=== PATIENT | male | born 1965 | race Caucasian/White ===

== ENCOUNTER → 2023-07-23 | Emergency (ER) | payer OTHER ==
[~2023-07-23] MED LIST: AZITHROMYCIN 500 MG INJ IVPB ONE; CEFTRIAXONE 1000 MG/VIAL ONE; KETOROLAC 30 MG/ML INJ ONE; NA CHLORIDE 0.9% 0 ML ONE; NA CHLORIDE 0.9% 1,000 ML ONE; ONDANSETRON 4 MG/2 ML VIAL ONE; PROMETHAZINE 25 MG TABLET ONE
[2023-07-23 06:24] LABS: SARS-CoV-2 Antigen Rapid Res Negative (Negative)
[2023-07-23 06:40] LABS: Absolute Lymphocytes (CBC) 0.5 K/uL (0.7-4.9); Hematocrit 38.8 % (39.6-49.0); Lymphocytes % 3.7 % (15.3-44.8); MCV 87.7 fL (80-100); MPV 9.7 fL (7.6-11.3); Platelets 164 thou/uL (152-406); RBC Red Blood Cell Count 4.42 M/uL (4.33-5.43)
[2023-07-23 06:50] LABS: Albumin 3.3 g/dL (3.4-5.0); Bilirubin Total 0.5 mg/dL (0.2-1.0); Potassium 3.4 mEq/L (3.5-5.1)
--- NOTE | 2023-07-23 08:19 | RAD REPORT ---
EXAM DESCRIPTION: CT - Chest Abdomen Pelvis W Cont - 07/23/2023 7:50 am CLINICAL HISTORY: sepsis COMPARISON: No comparisons TECHNIQUE: Thin axial CT images of the chest, abdomen, and pelvis, performed following intravenous a dministration of 100mL Isovue-300. Multiplanar reformats were generated and reviewed. All CT scans are performed using dose optimization technique as appropriate and may include automated exposure control or mA/KV adjustment according to patient size. FINDINGS: The lungs are clear apart from mild bibasilar platelike atelectatic changes.No pleural or pericardial effusion.No intrathoracic adenopathy. The liver, spleen, pancreas, adrenal glands and kidneys are within normal limits. No bowel obstruction, free air, free fluid or abscess. Normal appendix. No pathologic lymphadenopath y in the abdomen or pelvis. Mild prostatomegaly. No worrisome osseous finding. IMPRESSION: No acute process in the chest, abdomen, and pelvis. . Mild prostatomegaly.
--- NOTE | 2023-07-23 08:41 | ER ---
Nurse's Notes [facility] Name: Alex Jon Age: 57 yrs Sex: Male : 1965 Arrival Date: 07/23/2023 Time: 04:59 Bed 12 Private MD: Diagnosis: Viral syndrome Presentation: 07/23 05:00 Chief complaint: EMS states: 57 YO male complaining of flu like symptoms, weakness and vc1 shortness of breath. Vitals are stable. We gave 1 gram of tylenol for a temperature of 100.8. 05:00 Coronavirus screen: Vaccine status: Patient reports receiving the 2nd dose of the covid vc1 vaccine. Client denies travel out of the [place] in the last 14 days. chills, fatigue, fever, headache, shaking with chills, shortness of breath, Client presents with at least one sign or symptom that may indicate coronavirus-19. Ebola Screen: Patient negative for fever greater than or equal to 101.5 degrees Fahrenheit, and additional compatible Ebola Virus Disease symptoms Patient denies exposure to infectious person. Patient denies travel to an Ebola-affected area in the 21 days before illness onset. No symptoms or risks identified at this time. Initial Sepsis Screen: Does the patient meet any 2 criteria? No. Patient's initial sepsis screen is negative. Does the patient have a suspected source of infection? No. Patient's initial sepsis screen is negative. Risk Assessment: Do you want to hurt yourself or someone else? Patient reports no desire to harm self or others. Onset of symptoms was July 22, 2023 at 15:00. 05:00 Method Of Arrival: EMS: [facility] vc1 05:00 Acuity: IVORY 4 vc1 Triage Assessment: 06:21 General: Appears in no apparent distress. uncomfortable, Behavior is calm, cooperative, vc1 appropriate for age. General: Reports chills for fever for feeling ill for fatigue for 12-24 hours. Pain:. Pain: Denies pain. EENT: No deficits noted. No signs and/or symptoms were reported regarding the EENT system. Neuro: Level of Consciousness is awake, alert, obeys commands, Oriented to person, place, time, situation, Appropriate for age. Cardiovascular: No deficits noted. Respiratory: Reports shortness of breath Airway is patent Respiratory effort is even, unlabored, Respiratory pattern is regular, symmetrical. GI: No deficits noted. No signs and/or symptoms were reported involving the gastrointestinal system. : No deficits noted. No signs and/or symptoms were reported regarding the genitourinary system. Derm: No deficits noted. No signs and/or symptoms reported regarding the dermatologic system. Musculoskeletal: No deficits noted. No signs and/or symptoms reported regarding the musculoskeletal system. Historical: - Allergies: 06:19 No Known Allergies; vc1 - Home Meds: 06:19 Constulose oral [Active]; vc1 - PMHx: 06:19 ADD; vc1 - PSHx: 06:19 None; vc1 - Immunization history:: Client reports receiving the 2nd dose of the Covid vaccine, Flu vaccine is not up to date. - Social history:: Smoking status: Patient denies any tobacco usage or history of. - Family history:: not pertinent. Screenin:05 [facility] ED Fall Risk Assessment (Adult) History of falling in the last 3 months, vc1 including since admission No falls in past 3 months (0 pts). Abuse screen: Denies threats or abuse. Denies injuries from another. Nutritional screening: No deficits noted. Tuberculosis screening: No symptoms or risk factors identified. Assessment: 07:05 General: see triage assessment. vc1 Vital Signs: 05:00 BP 109 / 74; Pulse 88; Resp 20; Temp 99.1; Pulse Ox 94% ; Weight 98.43 kg; Height 5 ft. vc1 11 in. ; 09:05 BP 116 / 73; Pulse 83; Resp 17; Temp 99.2; Pulse Ox 100% ; jl7 05:00 Body Mass Index 30.27 (98.43 kg, 180.34 cm) vc1 ED Course: 05:11 Patient arrived in ED. gm2 05:12 Cornelio James MD is Attending Physician. sp4 06:18 Inserted saline lock: 20 gauge in right antecubital area, using aseptic technique. vc1 Blood collected. 06:19 Triage completed. vc1 06:20 CBC with Diff Sent. lg3 06:20 CMP Sent. lg3 06:20 SARS RAPID Sent. lg3 06:20 Influenza Screen (a \T\ B) Sent. lg3 06:21 Arm band placed on right wrist. vc1 06:21 Patient has correct armband on for positive identification. Bed in low position. Call vc1 light in reach. Side rails up X 1. Client placed on continuous cardiac and pulse oximetry monitoring. NIBP monitoring applied. 07:28 Attending Physician role handed off by Cornelio James MD rt 07:28 Lan Lal MD is Attending Physician. rt 07:51 CT Chest, Abdomen, Pelvis - W/Contrast In Process Unspecified. EDMS 08:17 Inserted saline lock: 20 gauge in left antecubital area, using aseptic technique. Blood ap3 collected. 08:17 First set of blood cultures drawn by me. ap3 08:28 Second set of blood cultures drawn right Forearm. jl7 09:05 No provider procedures requiring assistance completed. IV discontinued, intact, jl7 bleeding controlled, No redness/swelling at site. Pressure dressing applied. 09:09 Provided Education on: POC. jl7 Administered Medications: 06:50 Drug: NS 0.9% IV 1000 ml IV at 1 bolus Per protocol; 1000 mL bolus Route: IV; Rate: 1 kl bolus; Site: right antecubital; 09:00 Follow up: Response: No adverse reaction; IV Status: Completed infusion; IV Intake: jl7 1000ml 06:50 Drug: Ondansetron IVP 4 mg IVP once; over 2 minutes Route: IVP; Site: right antecubital;kl 09:06 Follow up: Response: No adverse reaction; Nausea is decreased jl7 06:54 Drug: Ketorolac IVP 30 mg IVP once Route: IVP; Site: right antecubital; kl 07:30 Follow up: Response: No adverse reaction; Marked relief of symptoms; Pain is decreased jl7 06:54 Drug: Promethazine PO 25 mg PO once Route: PO; kl 09:07 Follow up: Response: No adverse reaction; Nausea is decreased jl7 08:41 Not Given (viral illness): Rocephin - rocephin (ceftriaxone)1 grams IVPB once over 30 rt mins; (mix in 50 mL NS) 08:41 Not Given (viral illness): [id number] mg IVPB once over 1 hrs; mix in 250 mL NS rt Medication: 09:07 VIS not applicable for this client. jl7 Intake: 09:00 IV: 1000ml; Total: 1000ml. jl7 Outcome: 08:28 Discharged to home ambulatory, jl7 08:28 Condition: stable 08:28 Discharge instructions given to patient, Instructed on discharge instructions, follow up and referral plans. Demonstrated understanding of instructions, follow-up care, 08:40 Discharge ordered by . rt 09:09 Patient left the ED. jl7 Signatures: Dispatcher [employer] EDMS Darlene Glover, RN Pratibha Palacios RN RN jl7 Marisol Oakley RN RN ap3 Willow Hernandez RN RN lg3 Sarai Batista RN RN vc1 Lan Lal MD MD rt Cornelio James MD MD sp4 [facility]
--- NOTE | 2023-07-23 08:41 | EDPHYS ---
Physician Documentation [facility] Name: Alex Jon Age: 57 yrs Sex: Male : 1965 Arrival Date: 07/23/2023 Time: 04:59 Bed 12 Private MD: ED Physician Lan Lal HPI: 07/23 05:13 This 57 yrs old Male presents to ER via Unassigned with complaints of Flu sp4 Symptoms, Possible covid, Fever. 08:11 Patient is here on the work from [facility]. Yesterday patient developed generalized sp4 fatigue weakness, body aches, shakes, sweating, subjective fever, generalized weakness. Associated with some overall discomfort. Presented here with EMS for feeling unwell overall subjective fever and chills. Patient suspects he has a COVID. Historical: - Allergies: 06:19 No Known Allergies; vc1 - Home Meds: 06:19 Constulose oral [Active]; vc1 - PMHx: 06:19 ADD; vc1 - PSHx: 06:19 None; vc1 - Immunization history:: Client reports receiving the 2nd dose of the Covid vaccine, Flu vaccine is not up to date. - Social history:: Smoking status: Patient denies any tobacco usage or history of. - Family history:: not pertinent. ROS: 08:11 Constitutional: Positive fever, positive sweats, positive body aches, positive sp4 weakness, positive fatigue, positive chills, positive feeling unwell overall 08:11 All other systems are negative, Exam: 08:11 Constitutional: This is a well developed, well nourished patient who is awake, alert, sp4 and in no acute distress. Head/Face: Normocephalic, atraumatic. Eyes: Pupils equal round and reactive to light, extra-ocular motions intact. Lids and lashes normal. Conjunctiva and sclera are not injected. Cornea within normal limits. Periorbital areas with no swelling, redness, or edema. ENT: Nares patent. No nasal discharge, no septal abnormalities noted. Tympanic membranes are normal and external auditory canals are clear. Oropharynx with no redness, swelling, or masses, exudates, or evidence of obstruction, uvula midline. Mucous membranes moist. Neck: Trachea midline, no thyromegaly or masses palpated, and no cervical lymphadenopathy. Supple, full range of motion without nuchal rigidity, or vertebral point tenderness. Chest/axilla: Normal chest wall appearance and motion. Nontender with no deformity. No lesions are appreciated. Cardiovascular: Regular rate and rhythm with a normal S1 and S2. No gallops, murmurs, or rubs. Normal PMI, no JVD. No pulse deficits. Respiratory: Lungs have equal breath sounds bilaterally, clear to auscultation and percussion. No rales, rhonchi or wheezes noted. No increased work of breathing, no retractions or nasal flaring. Abdomen/GI: Soft, non-tender, with normal bowel sounds. No distension or tympany. No guarding or rebound. No evidence of tenderness throughout. Back: No spinal tenderness. No costovertebral tenderness. Skin: Warm, dry with normal turgor. Normal color with no rashes, no lesions, and no evidence of cellulitis. MS/ Extremity: Pulses equal, no cyanosis. Neurovascular intact. Full, normal range of motion. Neuro: Awake and alert, GCS 15, oriented to person, place, time, and situation. Cranial nerves II-XII grossly intact. Motor strength 5/5 in all extremities. Sensory grossly intact. Psych: Awake, alert, with orientation to person, place and time. Behavior, mood, and affect are within normal limits Vital Signs: 05:00 BP 109 / 74; Pulse 88; Resp 20; Temp 99.1; Pulse Ox 94% ; Weight 98.43 kg; Height 5 ft. vc1 11 in. ; 09:05 BP 116 / 73; Pulse 83; Resp 17; Temp 99.2; Pulse Ox 100% ; jl7 05:00 Body Mass Index 30.27 (98.43 kg, 180.34 cm) vc1 MDM: 05:15 Patient medically screened. sp4 08:15 Differential diagnosis: viral Infection, bacterial infection, URI, bronchitis, sp4 pneumonia UTI, gastroenteritis. Data reviewed: vital signs, nurses notes, EMS record, lab test result(s), radiologic studies, CT scan. Consideration of Admission/Observation Escalation of care including admission/observation considered. Transition of care: After a detail discussion of the patient's case, care is transferred to Lan Lal MD. ED course: And care was assigned to Dr. Lal. 07/23 05:13 Order name: Influenza Screen (a \T\ B); Complete Time: 07:20 sp4 07/23 05:13 Order name: SARS RAPID; Complete Time: 07:20 sp4 07/23 06:03 Order name: CBC with Diff sp4 07/23 06:03 Order name: CMP; Complete Time: 07:20 sp4 07/23 07:26 Order name: Blood Culture Adult (2) sp4 07/23 07:26 Order name: CT Chest, Abdomen, Pelvis - W/Contrast; Complete Time: 08:24 sp4 07/23 06:03 Order name: IV Saline Lock; Complete Time: 06:20 sp4 07/23 06:03 Order name: Labs collected and sent; Complete Time: 06:20 sp4 Administered Medications: 06:50 Drug: NS 0.9% IV 1000 ml IV at 1 bolus Per protocol; 1000 mL bolus Route: IV; Rate: 1 kl bolus; Site: right antecubital; 09:00 Follow up: Response: No adverse reaction; IV Status: Completed infusion; IV Intake: jl7 1000ml 06:50 Drug: Ondansetron IVP 4 mg IVP once; over 2 minutes Route: IVP; Site: right antecubital;kl 09:06 Follow up: Response: No adverse reaction; Nausea is decreased jl7 06:54 Drug: Ketorolac IVP 30 mg IVP once Route: IVP; Site: right antecubital; kl 07:30 Follow up: Response: No adverse reaction; Marked relief of symptoms; Pain is decreased jl7 06:54 Drug: Promethazine PO 25 mg PO once Route: PO; kl 09:07 Follow up: Response: No adverse reaction; Nausea is decreased jl7 08:41 Not Given (viral illness): Rocephin - rocephin (ceftriaxone)1 grams IVPB once over 30 rt mins; (mix in 50 mL NS) 08:41 Not Given (viral illness): [id number] mg IVPB once over 1 hrs; mix in 250 mL NS rt Disposition Summary: 07/23/23 08:40 Discharge Ordered Notes: Location: Home rt Problem: new rt Symptoms: have improved rt Condition: Stable rt Diagnosis - Viral syndrome rt Followup: rt - With: Private Physician - When: 2 - 3 days - Reason: Discharge Instructions: - Discharge Summary Sheet rt - Viral Illness, Adult rt Forms: - Medication Reconciliation Form rt - Thank You Letter rt - Antibiotic Education rt - Prescription Opioid Use rt - Patient Portal Instructions rt - Leadership Thank You Letter rt Signatures: Dispatcher [employer] Darlene Buck RN RN Sarai Gonzalez RN RN vc1 Lan Lal MD MD rt Cornelio James MD MD sp4 Prtaibha Adorno RN jl7
[2023-07-23 09:33] LABS: Blood Morphology Comment NOT SEEN (NOT SEEN); Platelet Estimate ADEQ; White Blood Cell Scan OK (OK)
[2023-07-23 13:47] VITALS: BP 116/73; TEMP 99.2; O2SAT 100
== END ==
LOC: ER 04:59
DX: B34.9 Viral infection, unspecified (principal); Z11.52 Encounter for screening for COVID-19
CPT/HCPCS: 87040 ×2; 85025; 36415; 80053; 87804 ×2; 71260; 74177; 87811; Q9967; Q0169; J2405; J7030; J0696; J7050